=== PATIENT | male | born 2000 | race Hispanic/Latino ===

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

== ENCOUNTER 2021-07-13 12:20 | Outpatient (CLI) | payer BC, OTHER ==
[~2021-07-13] VITALS: Ht 182.9 cm; Wt 97.5 kg
== END 2021-07-13 19:04 | disposition home or self-care (01) ==
LOC: INF 12:20
PROVIDERS: ATTEND Family Medicine
DX: Z23 Encounter for immunization (principal); U07.1 COVID-19
CPT/HCPCS: 96365; M0244